=== PATIENT | female | born 1940 | race Caucasian/White ===

== ENCOUNTER 2018-03-15 12:00 | Inpatient (IN) ==
--- NOTE | 2018-03-15 10:04 | Discharge Summary ---
Orders not resulted at time of discharge: Pending orders 03/15/18 09:59 XR knee RT 1-2V [XR] Routine H/H [Hemoglobin and Hematocrit] [HEME] Routine Date of Encounter: 03/19/18 Time of Encounter: 11:53 - Discharge Diagnosis (1) Status post total knee replacement, right Priority: Primary Status: Acute Comments: Opsite dressing, leave intact until first post-operative visit. If dressing becomes >50% saturated, contact office, remove dressing and place appropriate dressing in its place. Do not allow for dressing to get wet. Zipline in place, plan to remove at post-operative day #14-16. Total Joint Precautions x 6 weeks Apply cold therapy wrap 3-6x/day for 20 minutes at a time. Encourage ambulation throughout the day Use Incentive spirometer 10x/hour. Elevate affected extremity above heart as tolerated. Brace: Wear knee immobilizer at night until first post-operative appt. (2) Arthritis of knee, right Priority: Primary Status: Acute (3) Chronic pain Priority: Secondary Status: Chronic Comments: Holding Chronic pain medication x 1-2 weeks. Qualifiers: Chronic pain type: other chronic pain Qualified Code(s): G89.29 - Other chronic pain (4) COPD (chronic obstructive pulmonary disease) Priority: Secondary Status: Chronic Qualifiers: COPD type: unspecified COPD Qualified Code(s): J44.9 - Chronic obstructive pulmonary disease, unspecified (5) Obesity Priority: Secondary Status: Chronic Qualifiers: Obesity type: due to excess calories Obesity classification: adult class 2 (BMI 35 - 39.9) Serious obesity comorbidity presence: without serious comorbidity Body mass index: BMI 35.0-35.9 Qualified Code(s): E66.09 - Other obesity due to excess calories; Z68.35 - Body mass index (BMI) 35.0-35.9, adult (6) RLS (restless legs syndrome) Priority: Secondary Status: Chronic (7) Peripheral neuropathy Priority: Secondary Status: Chronic Qualifiers: Peripheral neuropathy type: polyneuropathy, other Qualified Code(s): G62.89 - Other specified polyneuropathies (8) FAUSTO (obstructive sleep apnea) Priority: Secondary Status: Chronic (9) HTN (hypertension) Priority: Secondary Status: Chronic Qualifiers: Hypertension type: essential hypertension Qualified Code(s): I10 - Essential (primary) hypertension - Hospital Course Hospital course: Ms. Dow is a 77 year old female, Right TKR 03/15/18 Patient seen at bedside, without complaints. A&O x 3 Afebrile, vital signs stable. Vital Signs Temp Pulse Resp BP Pulse Ox 03/19/18 10:56 98.3 F 67 14 144/74 97 03/19/18 08:02 17 97 03/19/18 07:32 98.2 F 61 15 153/76 98 03/19/18 00:03 97.5 F L 62 16 136/74 98 03/18/18 21:57 98 03/18/18 19:23 98.2 F 67 16 152/70 98 03/18/18 15:13 97.8 F 70 18 170/66 97 03/18/18 12:11 16 97 Intake and Output 03/18/18 03/19/18 03/19/18 23:59 07:59 15:59 Intake Total 940 / 940 200 / 200 Balance 940 / 940 200 / 200 Intake: IV Fluids 100 / 100 200 / 200 Ofirmev 1,000 mg/100 ml 1,000 100 / 100 200 / 200 mg In 100 ml @ 400 mls/hr IVPB Q6HR [facility] Rx#:[id number] Oral 840 / 840 Other: Meal Dinner Percent of Meal Consumed 10% Stool Size Small Stool Consistency formed # Voids 1 # Bowel Movements 1 Weight 100.1 kg Patient Weight 03/19/18 23:59 Weight 100.1 kg Labs reviewed. H/H - stable, asymptomatic Short CBC 03/19/18 Range/Units 06:11 WBC 5.8 (4.3-11.1) K/mcL Hgb 10.9 L (11.5-15.4) g/dL Hct 34.2 L (35.3-44.9) % Plt Count 175 (140-400) K/mcL BMP 03/19/18 Range/Units 06:11 Sodium 132 L (136-145) mEq/L Potassium 4.1 (3.5-5.1) mEq/L Chloride 101 (98-107) mEq/L Carbon Dioxide 22 L (23-29) mEq/L BUN 23 (8-23) mg/dL Creatinine 1.02 (0.60-1.20) mg/dL Glucose 92 (70-105) mg/dL Calcium 8.7 (8.6-10.3) mg/dL Pain control: adequate Added Fenatanyl patch 03/18 AM - D/C on Thursday. Added 3 does of Toradol. Improved pain on 03/18. Participating in PT. All questions and concerns addressed. Educated on use of incentive spirometer. Encouraged ambulation and proper hydration. Patient educated on post-operative restrictions and post-operative care. Assessment and plan: Continue with postoperative care Discharge plan: ECF, discharge Thursday - Time Spent with Patient Total time spent providing and/or coordinating discharge services: - Discharge Medications Home Medications: Albuterol Sulfate [Proair Hfa] 2 puff IH Q4H PRN 03/20/16 [History] Atenolol [Tenormin] 75 mg PO DAILY 03/20/16 [History] Baclofen [Lioresal] 5 mg PO BID 03/20/16 [History] Esomeprazole Magnesium [Nexium] 40 mg PO DAILY 03/20/16 [History] Estrogen,Cleopatra/Me-Testosterone [Covaryx Tablet] 1 tab PO DAILY 03/20/16 [History] Modafinil [Provigil] 200 mg PO DAILY 03/20/16 [History] Montelukast [Singulair] 10 mg PO DAILY 03/20/16 [History] Ranitidine HCl [Acid Acting Section Chief] 150 mg PO HS 03/20/16 [History] Tizanidine HCl 4 mg PO TID PRN 03/20/16 [History] Buspirone HCl [Buspar] 10 mg PO BID 08/16/17 [History] Calcium Carbonate [Calcium] 600 mg PO BID 08/16/17 [History] Cholecalciferol (Vitamin D3) [Vitamin D3] 50,000 unit PO MO 08/16/17 [History] Fluticasone Propionate Nasal [Flonase] 2 spr NS DAILY 08/16/17 [History] Furosemide [Lasix] 20 mg PO DAILY 08/16/17 [History] Levothyroxine Sodium [Levo-T] 175 mcg PO DAILY 08/16/17 [History] Pramipexole [Mirapex] 1.5 mg PO HS 08/16/17 [History] Aspirin Enteric Coated [Aspirin EC] 325 mg PO BID #20 tablet. 03/15/18 [Rx] Docusate [Colace] 100 mg PO BID 10 Days #20 capsule 03/15/18 [Rx] OxyCODONE Immed Rel [Roxicodone 5 MG] 5 mg PO Q6HR PRN 7 Days #28 tablet 03/15/18 [Rx] Tiotropium [place] [Spiriva Respimat] 2 puff IH DAILY 03/15/18 [History] Trospium Chloride [Trospium Chloride ER] 60 mg PO DAILY 03/15/18 [History] Atenolol [Tenormin] 50 mg PO DAILY 03/16/18 [History] Ferrous Sulfate 325 mg PO BIDWM tablet 03/19/18 [Rx] Lidocaine Patch [Lidoderm 5% patch] 1 each TP Q24H adh..patch 03/19/18 [Rx] Allergies/Adverse Reactions: Allergy/AdvReac Type Severity Reaction Status Date / Time carbamazepine [From Epitol] Allergy Rash Verified 03/15/18 13:29 duloxetine [From Cymbalta] Allergy Difficulty Verified 03/15/18 13:29 Breathing gabapentin Allergy Blurry Verified 03/15/18 13:29 Vision hydrochlorothiazide AdvReac See Verified 03/15/18 13:29 Comments levofloxacin [From Levaquin] AdvReac Itching Verified 03/15/18 13:29 pregabalin [From Lyrica] AdvReac Irritable Verified 03/15/18 13:29 Date of admission: 03/15/18 Primary care physician: Ger Walsh MD Anticipated date of discharge: 03/19/18 - Patient Status Disposition: Transfer SNF Condition: Good Functional capacity at discharge: uses cane/walker Overall status at discharge: patient is progressing back to baseline - Discharge Instructions Follow Up With: Fredis Montilla MD [Partnered Physician] - 04/14/18 4:30 pm Mary Jane Sommer CNP [Advanced Practice Nurse] - 07/15/18 9:15 am Kayley Motnelongo PAC [Physician Solids Control Technician] - 03/25/18 9:30 am Ger Walsh MD [Primary Care Provider] - 03/24/18 10:30 am
[~2018-03-15 12:00] MED LIST: Total Joint Mixture (50 ml) IR ONE
[2018-03-15] MEDS ORDERED: CeFAZolin Syr 2,000MG/20 ML 2,000 MG/20 ML SYRINGE IVPB ONE (12:24)
[2018-03-15] MEDS ORDERED: Albuterol 2.5 MG/3 ML NEBULIZER IH ONE (12:24)
[2018-03-15] MEDS: Ringers Solution, Lactated 1,000 ML IVC SCH ×2 (12:43→17:01)
--- NOTE | 2018-03-15 13:00 | History & Physical Report ---
Date of Encounter: 03/15/18 Time of Encounter: 13:00 24 Hour HP Update - Instructions Instructions: If the History and Physical is less than 30 days old and was completed prior to A.M. admission and or procedure and has NOT been updated on calendar day of procedure please complete this update prior to performing procedure. - Update Patient reports changes in Medical Condition: No Changes in examination, assessment, or condition: No Changes in Medication: No Preop tests/diagnostics Reviewed: Yes Surgery Remains Indicated: Yes Consent for Planned Operative Procedure(s) Verified: Yes - Pre-Operative Checklist Preoperative Checklist Indicated: No Prophylactic Antibiotic Ordered: Yes Is VTE Prophylaxis Indicated?: Yes
--- NOTE | 2018-03-15 13:16 | Anesthesia Evaluation PreOp ---
Date of Encounter: 03/15/18 Time of Encounter: 13:15 - Past History Planned Operation: Total robotic knee arthroplasty Cardiac History: HTN, Hyperlipidemia Pulmonary History: Former smoker (quit in 1999), COPD (patient denies), FAUSTO Dx (no longer uses cpap) SLOT ATTENDANT History: Other (neuopathy involving bilateral lower extremities) Other Medical History: Renal (stage 2 ckd), Thyroid (hypothyroidism) Anesthesia History: Problems (persistent throat irritation/coughing after only one of her surgeries) Alcohol Use: occasionally Drug use: none Medications and Allergies Albuterol Sulfate [Proair Hfa] 2 puff IH Q4H PRN 03/20/16 [History] Atenolol [Tenormin] 50 mg PO DAILY 03/20/16 [History] Baclofen [Lioresal] 5 mg PO BID 03/20/16 [History] Esomeprazole Magnesium [Nexium] 40 mg PO DAILY 03/20/16 [History] Estrogen,Cleopatra/Me-Testosterone [Covaryx Tablet] 1 tab PO DAILY 03/20/16 [Histor y] Modafinil [Provigil] 200 mg PO DAILY 03/20/16 [History] Montelukast [Singulair] 10 mg PO DAILY 03/20/16 [History] Ranitidine HCl [Acid Autocutter] 150 mg PO HS 03/20/16 [History] Tizanidine HCl 4 mg PO TID PRN 03/20/16 [History] Budesonide/Formoterol 160/4.5 [Symbicort 160/4.5] 2 puff IH BIDR 08/16/17 [History] Buspirone HCl [Buspar] 10 mg PO BID 08/16/17 [History] Calcium Carbonate [Calcium] 600 mg PO BID 08/16/17 [History] Cholecalciferol (Vitamin D3) [Vitamin D] 50,000 unit PO QWEEK 08/16/17 [History] Fluticasone Propionate Nasal [Flonase] 100 mcg NS DAILY 08/16/17 [History] Furosemide [Lasix] 20 mg PO DAILY 08/16/17 [History] Levothyroxine Sodium [Levo-T] 175 mcg PO DAILY 08/16/17 [History] Pramipexole [Mirapex] 1.5 mg PO DAILY 08/16/17 [History] Aspirin Enteric Coated [Aspirin EC] 325 mg PO BID #20 tablet. 03/15/18 [Rx] Docusate [Colace] 100 mg PO BID 10 Days #20 capsule 03/15/18 [Rx] OxyCODONE Immed Rel [Roxicodone 5 MG] 5 mg PO Q6HR PRN 7 Days #28 tablet 03/15/18 [Rx] Allergy/AdvReac Type Severity Reaction Status Date / Time carbamazepine [From Epitol] Allergy Rash Verified 03/15/18 12:29 duloxetine [From Cymbalta] Allergy Difficulty Verified 03/15/18 12:29 Breathing gabapentin Allergy Blurry Verified 08/16/17 14:39 Vision hydrochlorothiazide AdvReac See Verified 03/15/18 12:29 Comments levofloxacin [From Levaquin] AdvReac Itching Verified 03/15/18 12:30 pregabalin [From Lyrica] AdvReac Irritable Verified 08/16/17 14:39 - Meds/Allergy Pre-op Review Medications Reviewed: Yes Allergies Reviewed: Yes Beta Blockers on Current Med List: No Anesthesia Results - Labs Laboratory Tests 03/04/18 03/04/18 03/04/18 09:01 09:01 09:01 WBC 9.4 Hgb 14.1 Hct 43.4 Plt Count 253 PT 10.9 INR 1.0 APTT 27.0 Sodium 135 L Potassium 4.0 Chloride 104 Carbon Dioxide 23 BUN 28 H Creatinine 0.96 Est GFR ( Amer) > 60 Est GFR (Non-Af Amer) 56 L BUN/Creatinine Ratio 29 H Glucose 104 - Imaging EKG: report reviewed, image reviewed (Sinus bradycardia) Anesthesia Exam Last Vital Signs Temp 97.2 F L 03/15/18 12:56 Pulse 69 03/15/18 12:56 Resp 18 03/15/18 12:56 BP 159/73 03/15/18 12:56 Pulse Ox 98 03/15/18 12:56 Weight: 93 kg NPO (# of Hours): > 8 hrs - HEENT Pupil (Motor): Pupils equal, EOMI Mallampati: I Teeth: Poor dentition Oral Opening: Greater than 3 - SLOT ATTENDANT LOC: Oriented SLOT ATTENDANT Sensory: Deficit: RLE, LLE - Cardiac Rhythm: Regular Murmur: None - Pulmonary Breath Sounds: bilateral Clear Respiratory Effort: Symmetrical Anesthesia Assess/Plan ASA Score: 3 Level of consciousness: Cooperative Anesthetic Plan: General, Regional Nerve Block Regional Nerve Block Plan: Femoral, IPACK Reason for No Neuroaxial/Regional Block: Other (hx neuropathy s/p spinal surgery x 2 (lumbar spine surgery with hardware - avoiding neuraxial anesthesia)) Monitoring Plan: Standard Monitors Recovery Plan: PACU
[2018-03-15] MEDS ORDERED: Acetaminophen IV 1,000 MG/100 ML INFUS..BTL IVPB ONE (13:19)
[2018-03-15] MEDS ORDERED: *HR* OxyCODONE Immed Rel 5 MG TABLET PO PRN (13:21)
[2018-03-15] MEDS ORDERED: *HR* Promethazine 25 MG/ML VIAL IVP PRN ×2 (13:21→17:42)
[2018-03-15] MEDS ORDERED: *HR* Propofol 200 MG/20 ML VIAL IVP ONE ×2 (13:33→15:14)
[2018-03-15] MEDS ORDERED: Lidocaine -MPF 2% 2 ML VIAL ONE (13:33)
[2018-03-15] MEDS ORDERED: *HR* Midazolam HCl 2 MG/2 ML VIAL ONE (13:33)
[2018-03-15] MEDS ORDERED: *HR* FentaNYL (PF) 100 MCG/2 ML VIAL ONE ×2 (13:33→15:11)
[2018-03-15] MEDS ORDERED: Ondansetron 4 MG/2 ML VIAL ONE (13:33)
[2018-03-15] MEDS ORDERED: Dexamethasone 4 MG/ML VIAL ONE (13:33)
[2018-03-15] MEDS ORDERED: Bupivacaine/Clonidine Syringe 1 EACH SYRINGE ONE (14:05)
[2018-03-15] MEDS ORDERED: Ethanol\\Acetic Acid\\Na Ace\\Ben 1,000 ML IRRIG.SOLN IR ONE (14:19)
[2018-03-15] MEDS ORDERED: Total Joint Mixture (50 ml) IR ONE (14:30)
[2018-03-15] MEDS ORDERED: Tranexamic Acid 1,000 MG/10 ML VIAL ONE (14:53)
--- NOTE | 2018-03-15 15:59 | Orthopedic Operative Note ---
Date of procedure: 03/15/18 Pre-op diagnosis: Right knee arthritis Post-op diagnosis: same Procedure: Procedure: Right robotic-assisted Total knee replacement Estimated blood loss: 200 cc Hardware: Metal and polyethylene replacement. Panther Burn Femur: 4 Tibia: 4 TS insert: 11 Patella: 36 Exam Under anesthesia: 0 flexion-extension 0 varus valgus as calculated by the robot full flexion and no instability Procedural Notes: Grade 3 arthritic changes all 3 compartments Operative procedure: The patient was brought to the operating room and placed on the operating room table. After general anesthesia was administered the operative knee was examined. Findings were noted in the exam under anesthesia. The operative extremity was prepped and draped in sterile surgical fashion. The patient received IV antibiotics prior to skin incision. A standard midline incision was made centered over the patella. The incision was made through the skin and subcutaneous tissue. A medial parapatellar tendon approach was performed. Care was taken to preserve tissue along the medial aspect of the patella. And to protect the patella tendon. The deep MCL was released off the medial tibia. The infra patella fat pad was excised. The patella was everted and cut was made at the level of the insertion of the quadriceps and patella tendon. The patella was sized the guide was seated and the lug holes are drilled. Knee was brought into flexion. Patient noted to have grade 3 arthritic changes all 3 compartments. Steinmann pins were placed in the tibia and the femur for the tibial and femoral arrays respectively. Checkpoints were also placed in the tibia and the femur for calculation purposes. The knee including the femur and the tibial registered. Osteophytes, ACL and PCL were excised at this point. Extension and flexion were assessed with a valgus stress components were adjusted on the computer to balance the knee. Femoral cuts were made first with robotic assistance, these included the anterior cut posterior cuts chamfer cuts. Tibial cut was then performed with robotic assistance as well. Bone fragments were removed, as well as the medial and lateral meniscus. The size 4 femoral guide was seated box cut was made lug holes are drilled. The size 4 tibial tray was seated and prepared with the fin cutter. Trial reduction with the 11 TS Megan revealed extension of 0 degree and 0 varus valgus full flexion. No varus valgus instability. Trial reduction revealed excellent patella tracking. All trial components were removed all bony surfaces were irrigated. The Tibia was seated followed by the femur, The selected Megan size was seated and secured patella. Patient had similar findings for motion and stability. The knee was closed by the PA. The knee was then irrigated out with 2 L of pulse irrigation. The extensor mechanism was closed with #2 FiberWire suture and #2 PDS suture. The subcutaneous tissue was then irrigated and closed deep with #1 PDS suture superficially with 0 PDS suture and skin was closed with zip tie The patient was then placed in a sterile dressing and a postoperative brace extubated and transferred to recovery room in stable condition. Anesthesia: GETA Surgeon: Fredis Montilla Was there an assistant hvac mechanic present: Yes Senior Network Systems Engineer: Kayley Montelongo Estimated blood loss (cc): 200 Condition: stable Disposition: PACU
[2018-03-15] MEDS ORDERED: *HR* HYDROMORPHONE 2 MG/ML VIAL ONE (16:27)
[2018-03-15 17:16] LABS: Hematocrit 42.2 % (35.3-44.9); Hemoglobin 13.9 g/dL (11.5-15.4)
[2018-03-15] MEDS ORDERED: Ondansetron 4 MG/2 ML VIAL IVP PRN (17:42)
[2018-03-15] MEDS ORDERED: Sennosides 8.6 MG TABLET PO PRN (17:42)
[2018-03-15] MEDS ORDERED: Temazepam 15 MG CAPSULE PO PRN (17:42)
[2018-03-15] MEDS ORDERED: MOM Conc 10 ML UD.LIQ PO PRN (17:42)
[2018-03-15] MEDS ORDERED: Naloxone 0.4 MG/ML INJ IVP PRN (17:42)
--- NOTE | 2018-03-15 17:48 | Anesthesia Evaluation Post Op ---
Date of Encounter: 03/15/18 Time of Encounter: 17:48 - Vital Signs Vital Signs: Vital Signs/O2 Sat, Most Current Temp Pulse Resp BP Pulse Ox 98.9 F 77 18 161/80 100 03/15/18 17:14 03/15/18 17:14 03/15/18 17:14 03/15/18 17:14 03/15/18 17:14 - Lungs Lungs: Clear Ascult./Percussion - Airway Airway: Non-obstructed - Cardiovascular Regular Rate - Mental Status Mental Status: Alert & Oriented, Answers Appropriately - Pain Pain Scale used: Numeric (1 - 10) (tolerable) - Nausea Vomiting Nausea Vomiting: Not Present - Hydration Hydration: Tolerates oral liquids - Discharge PostOp Status: Transfer Patient to floor
[2018-03-15] MEDS: *HR* OxyCODONE Immed Rel 5 MG TABLET PO PRN ×2 (18:13→22:21)
[2018-03-15] MEDS: Ascorbic Acid 500 MG TABLET PO SCH (19:33)
[2018-03-15] MEDS: *HR* Enoxaparin 30 MG/0.3 ML SYRINGE SQ SCH (19:33)
[2018-03-15] MEDS: traMADol 50 MG TABLET PO PRN (20:40)
[2018-03-16] MEDS: Acetaminophen IV 1,000 MG/100 ML INFUS..BTL IVPB SCH ×4 (00:41→21:20)
[2018-03-16] MEDS: *HR* OxyCODONE Immed Rel 5 MG TABLET PO PRN (05:15)
[2018-03-16] MEDS: *HR* Enoxaparin 30 MG/0.3 ML SYRINGE SQ SCH ×2 (06:09→17:05)
[2018-03-16 06:14] LABS: Hemoglobin 12.2 g/dL (11.5-15.4)
--- NOTE | 2018-03-16 06:29 | Orthopedics Progress Note ---
Date of Encounter: 03/16/18 Time of Encounter: 06:29 Subjective Interval history: Patient was seen this morning doing well without complaints. Afebrile vital signs stable. Operative extremity: Neurovascularly intact Dressing clean dry and intact Calves nontender Assessment and plan: Continue with postoperative care Discharged today Objective Vital signs: Vital Signs Temp Pulse Resp BP Pulse Ox 03/16/18 04:34 97.8 F 69 18 128/68 96 03/15/18 23:49 98.0 F 69 16 145/68 95 03/15/18 20:35 97.4 F L 75 16 174/70 95 03/15/18 19:00 75 16 170/77 97 03/15/18 18:30 73 16 185/74 98 03/15/18 18:00 98.4 F 69 15 169/75 98 03/15/18 17:14 98.9 F 77 18 161/80 100 03/15/18 17:04 97.5 F L 75 14 178/80 97 03/15/18 16:54 75 18 166/81 100 03/15/18 16:44 76 20 166/84 100 03/15/18 16:34 98.1 F 77 18 171/65 99 03/15/18 14:50 67 18 141/63 94 03/15/18 14:40 68 18 138/60 98 03/15/18 14:30 70 18 147/76 98 03/15/18 14:20 69 18 144/67 99 03/15/18 14:10 77 18 157/115 100 03/15/18 14:00 68 18 170/70 92 03/15/18 12:56 97.2 F L 69 18 159/73 98 03/15/18 12:14 97.2 F L 69 18 159/73 98 Intake and Output 03/15/18 03/15/18 03/16/18 15:59 23:59 07:59 Intake Total 1500 / 1500 400 / 400 Output Total 200 / 200 0 / 0 Balance 1300 / 1300 400 / 400 Intake: IV Fluids 1000 / 1000 200 / 200 Lactated Ringers 1,000 ML @ 25 1000 / 1000 mls/hr IVC .Q24H COUNT INCLUDES THE [facility] Rx#: [id number] Ofirmev 1,000 mg/100 ml 1,000 100 / 100 mg In 100 ml @ 400 mls/hr IVPB Q6HR [facility] Rx#:[id number] Ancef Syringe 2,000 MG/20 ML 2, 20 / 20 000 mg In 20 ml @ 200 mls/hr IVPB PREOP [facility] Rx#:[id number] Ancef 2,000 MG In 0.9 % Sodium 100 / 100 Chloride 100 ML @ 200 mls/hr IVPB Q8H COUNT INCLUDES THE [facility] Rx#:[id number] Oral 500 / 500 200 / 200 Output: Urine 0 / 0 0 / 0 Estimated Blood Loss 200 / 200 Other: # Voids 1 1 Weight 92.986 kg 99.63 kg Patient Weight 03/16/18 23:59 Weight 99.63 kg - Labs CBC & BMP: 03/16/18 06:03 Consult Discharge Plan - Plan Referrals: Ger Walsh MD [Primary Care Provider] - Prescriptions: Aspirin Enteric Coated [Aspirin EC] 325 mg PO BID #20 tablet. Docusate [Colace] 100 mg PO BID 10 Days #20 capsule OxyCODONE Immed Rel [Roxicodone 5 MG] 5 mg PO Q6HR PRN 7 Days #28 tablet PRN Reason: Severe Pain
[2018-03-16 06:31] LABS: Calcium 8.3 mg/dL (8.6-10.3); Potassium 4.2 mEq/L (3.5-5.1)
[2018-03-16] MEDS: Multivit/Ca/Min/Fe/FA 1 TAB TABLET PO SCH (09:43)
[2018-03-16] MEDS: *HR* OxyCODONE/APAP 5/325 TABLET PO PRN ×2 (09:43→17:09)
[2018-03-16] MEDS: Ascorbic Acid 500 MG TABLET PO SCH ×2 (09:43→17:05)
--- NOTE | 2018-03-16 16:14 | Event Note ---
Date of Encounter: 03/16/18 Time of Encounter: 16:13 PCR - POD#1 - Right TKR 03/15/18 Patient seen at bedside, without complaints. A&O x 3 Afebrile, vital signs stable. Labs reviewed. H/H - stable, asymptomatic Pain control: adequate Participating in PT. All questions and concerns addressed. Educated on use of incentive spirometer. Encouraged ambulation and proper hydration. Patient educated on post-operative restrictions and post-operative care. Assessment and plan: Continue with postoperative care Discharge plan: ECF versus HH, discharge tomorrow or . Short CBC 03/16/18 03/15/18 Range/Units 06:03 17:00 Hgb 12.2 D 13.9 (11.5-15.4) g/dL Hct 37.0 42.2 (35.3-44.9) % BMP 03/16/18 Range/Units 06:03 Sodium 135 L (136-145) mEq/L Potassium 4.2 (3.5-5.1) mEq/L Chloride 107 (98-107) mEq/L Carbon Dioxide 21 L (23-29) mEq/L BUN 25 H (8-23) mg/dL Creatinine 1.08 (0.60-1.20) mg/dL Glucose 142 H (70-105) mg/dL Calcium 8.3 L (8.6-10.3) mg/dL Vital Signs Temp Pulse Resp BP Pulse Ox 03/16/18 14:39 97.5 F L 75 18 149/70 95 03/16/18 10:59 97.6 F 69 18 154/68 96 03/16/18 08:00 95 03/16/18 06:27 97.4 F L 66 18 122/67 95 03/16/18 04:34 97.8 F 69 18 128/68 96 03/15/18 23:49 98.0 F 69 16 145/68 95 03/15/18 20:35 97.4 F L 75 16 174/70 95 03/15/18 19:00 75 16 170/77 97 03/15/18 18:30 73 16 185/74 98 03/15/18 18:00 98.4 F 69 15 169/75 98 03/15/18 17:14 98.9 F 77 18 161/80 100 03/15/18 17:04 97.5 F L 75 14 178/80 97 03/15/18 16:54 75 18 166/81 100 03/15/18 16:44 76 20 166/84 100 03/15/18 16:34 98.1 F 77 18 171/65 99 Intake and Output 03/16/18 03/16/18 03/16/18 07:59 15:59 23:59 Intake Total 500 / 500 860 / 860 Output Total 0 / 0 250 / 250 Balance 500 / 500 610 / 610 Intake: IV Fluids 300 / 300 100 / 100 Ofirmev 1,000 mg/100 ml 1,000 200 / 200 mg In 100 ml @ 400 mls/hr IVPB Q6HR [facility] Rx#:[id number] Ancef 2,000 MG In 0.9 % Sodium 100 / 100 100 / 100 Chloride 100 ML @ 200 mls/hr IVPB Q8H [facility] Rx#:[id number] Oral 200 / 200 760 / 760 Output: Urine 0 / 0 250 / 250 Other: Meal Lunch Percent of Meal Consumed 95% # Voids 1 Weight 99.63 kg Patient Weight 03/16/18 23:59 Weight 99.63 kg
[2018-03-16] MEDS ORDERED: tiZANidine 4 MG TABLET PO PRN (21:06)
[2018-03-16] MEDS ORDERED: Fluticasone Propionate Nasal 50 MCG/SPRAY BOTTLE NS PRN (21:06)
[2018-03-16] MEDS: Ketorolac 15 MG/ML VIAL IVP SCH (21:47)
[2018-03-16] MEDS: Famotidine 20 MG TABLET PO SCH (21:48)
[2018-03-16] MEDS: Baclofen 10 MG TABLET PO SCH (21:48)
[2018-03-17] MEDS: *HR* OxyCODONE Immed Rel 5 MG TABLET PO PRN ×4 (00:05→18:10)
[2018-03-17] MEDS: Acetaminophen IV 1,000 MG/100 ML INFUS..BTL IVPB SCH ×5 (00:41→23:53)
[2018-03-17] MEDS: Ketorolac 15 MG/ML VIAL IVP SCH ×2 (03:39→11:14)
[2018-03-17 06:19] LABS: Hematocrit 33.8 % (35.3-44.9); Hemoglobin 10.7 g/dL (11.5-15.4); Mean Corpuscular HGB Conc 31.7 g/dL (31.6-35.5); Mean Corpuscular Hemoglobin 29.6 pg (28.0-33.3); Mean Corpuscular Volume 93.6 fL (83.0-100.0); Mean Platelet Volume 11.2 fL (9.4-12.4); Platelet Count 153 K/mcL (140-400); Red Blood Count 3.61 M/mcL (3.82-4.97); Red Cell Distribution Width 14.6 % (11.5-14.5)
[2018-03-17] MEDS: traMADol 50 MG TABLET PO PRN ×2 (06:34→22:36)
[2018-03-17] MEDS: *HR* Enoxaparin 30 MG/0.3 ML SYRINGE SQ SCH ×2 (06:35→18:55)
--- NOTE | 2018-03-17 06:44 | Orthopedics Progress Note ---
Date of Encounter: 03/17/18 Time of Encounter: 06:44 Subjective Interval history: Patient was seen this morning planes of pain right knee. Afebrile vital signs stable. Operative extremity: Neurovascularly intact Dressing clean dry and intact Calves nontender Assessment and plan: Continue with postoperative care Hematocrit 33 plan for Discharge today Objective Vital signs: Vital Signs Temp Pulse Resp BP Pulse Ox 03/17/18 03:41 98.1 F 68 18 147/77 97 03/16/18 22:58 97.8 F 66 17 105/63 96 03/16/18 19:10 97.4 F L 76 17 154/80 95 03/16/18 14:39 97.5 F L 75 18 149/70 95 03/16/18 10:59 97.6 F 69 18 154/68 96 03/16/18 08:00 95 Intake and Output 03/16/18 03/16/18 03/17/18 15:59 23:59 07:59 Intake Total 860 / 860 520 / 520 100 / 100 Output Total 250 / 250 200 / 200 Balance 610 / 610 320 / 320 100 / 100 Intake: IV Fluids 100 / 100 100 / 100 100 / 100 Ofirmev 1,000 mg/100 ml 1,000 100 / 100 100 / 100 mg In 100 ml @ 400 mls/hr IVPB Q6HR [facility] Rx#:[id number] Ancef 2,000 MG In 0.9 % Sodium 100 / 100 Chloride 100 ML @ 200 mls/hr IVPB Q8H [facility] Rx#:[id number] Oral 760 / 760 420 / 420 Output: Urine 250 / 250 200 / 200 Other: Meal Lunch Percent of Meal Consumed 95% Weight 99.7 kg Patient Weight 03/17/18 23:59 Weight 99.7 kg - Labs CBC & BMP: 03/17/18 06:01 03/16/18 06:03 Labs: Abnormal lab results RBC 3.61 M/mcL (3.82-4.97) L 03/17/18 06:01 Hgb 10.7 g/dL (11.5-15.4) L D 03/17/18 06:01 Hct 33.8 % (35.3-44.9) L 03/17/18 06:01 RDW 14.6 % (11.5-14.5) H 03/17/18 06:01 Sodium 135 mEq/L (136-145) L 03/16/18 06:03 Carbon Dioxide 21 mEq/L (23-29) L 03/16/18 06:03 BUN 25 mg/dL (8-23) H 03/16/18 06:03 Est GFR (Non-Af Amer) 49 (> 60) L 03/16/18 06:03 Glucose 142 mg/dL (70-105) H 03/16/18 06:03 Calcium 8.3 mg/dL (8.6-10.3) L 03/16/18 06:03 Consult Discharge Plan - Plan Referrals: Fredis Montilla MD [Partnered Physician] - 04/14/18 4:30 pm Mary Jane Sommer CNP [Advanced Practice Nurse] - 07/15/18 9:15 am Kayley Montelongo, PAC [Physician Automotive Warranty Administrator] - 03/25/18 9:30 am Ger Walsh MD [Primary Care Provider] - 03/24/18 10:30 am
[2018-03-17 08:30] LABS: Calcium 8.3 mg/dL (8.6-10.3)
[2018-03-17] MEDS: Ascorbic Acid 500 MG TABLET PO SCH ×2 (08:42→18:18)
[2018-03-17] MEDS: Multivit/Ca/Min/Fe/FA 1 TAB TABLET PO SCH (08:42)
[2018-03-17] MEDS: Furosemide 20 MG TABLET PO SCH (08:42)
[2018-03-17] MEDS: Baclofen 10 MG TABLET PO SCH ×2 (08:42→21:43)
[2018-03-17] MEDS: TESTOSTERONE PO SCH (08:43)
[2018-03-17] MEDS: ESTROGEN ESTER PO SCH (08:43)
[2018-03-17] MEDS: TROSPIUM CHLORIDE 60 MG PO SCH (08:43)
[2018-03-17] MEDS: Tiotropium 18 MCG inhalation IH SCH (11:22)
[2018-03-17] MEDS ORDERED: Ketorolac 15 MG/ML VIAL IVP SCH (12:00)
[2018-03-17] MEDS: CREON PO SCH ×2 (12:48→18:18)
--- NOTE | 2018-03-17 14:33 | Event Note ---
Date of Encounter: 03/17/18 Time of Encounter: 14:31 PCR - POD#2 - Right TKR 03/15/18 Patient seen at bedside, without complaints. A&O x 3 Afebrile, vital signs stable. Labs reviewed. H/H - stable, asymptomatic Pain control: adequate Participating in PT. All questions and concerns addressed. Educated on use of incentive spirometer. Encouraged ambulation and proper hydration. Patient educated on post-operative restrictions and post-operative care. Assessment and plan: Continue with postoperative care Discharge plan: ECF, discharge . Short CBC 03/17/18 Range/Units 06:01 WBC 7.7 (4.3-11.1) K/mcL Hgb 10.7 L D (11.5-15.4) g/dL Hct 33.8 L (35.3-44.9) % Plt Count 153 (140-400) K/mcL BMP 03/17/18 Range/Units 08:00 Sodium 134 L (136-145) mEq/L Potassium 4.0 (3.5-5.1) mEq/L Chloride 106 (98-107) mEq/L Carbon Dioxide 21 L (23-29) mEq/L BUN 28 H (8-23) mg/dL Creatinine 1.15 (0.60-1.20) mg/dL Glucose 113 H (70-105) mg/dL Calcium 8.3 L (8.6-10.3) mg/dL Vital Signs Temp Pulse Resp BP Pulse Ox 03/17/18 07:00 98.4 F 73 16 144/79 98 03/17/18 03:41 98.1 F 68 18 147/77 97 03/16/18 22:58 97.8 F 66 17 105/63 96 03/16/18 19:10 97.4 F L 76 17 154/80 95 03/16/18 14:39 97.5 F L 75 18 149/70 95 Intake and Output 03/16/18 03/17/18 03/17/18 23:59 07:59 15:59 Intake Total 520 / 520 200 / 200 Output Total 200 / 200 Balance 320 / 320 200 / 200 Intake: IV Fluids 100 / 100 200 / 200 Ofirmev 1,000 mg/100 ml 1,000 100 / 100 200 / 200 mg In 100 ml @ 400 mls/hr IVPB Q6HR [facility] Rx#:[id number] Oral 420 / 420 Output: Urine 200 / 200 Other: Weight 99.7 kg Patient Weight 03/17/18 23:59 Weight 99.7 kg
--- NOTE | 2018-03-17 14:36 | Physician Discharge Referral ---
ExtendedCare Referral Info Transfer To: F Provider in Charge after Transfer: PCP Institutional Level of Care: Skilled - Diagnosis (1) Status post total knee replacement, right Priority: Primary Status: Acute (2) Arthritis of knee, right Priority: Primary Status: Acute (3) Chronic pain Priority: Secondary Status: Chronic (4) COPD (chronic obstructive pulmonary disease) Status: Chronic (5) FAUSTO (obstructive sleep apnea) Status: Chronic (6) Obesity Status: Chronic (7) Peripheral neuropathy Status: Chronic (8) RLS (restless legs syndrome) Status: Chronic Expected Duration of Placement: 30 days - Transfer Medications Home Medications: Albuterol Sulfate [Proair Hfa] 2 puff IH Q4H PRN 03/20/16 [History] Atenolol [Tenormin] 75 mg PO DAILY 03/20/16 [History] Baclofen [Lioresal] 5 mg PO BID 03/20/16 [History] Esomeprazole Magnesium [Nexium] 40 mg PO DAILY 03/20/16 [History] Estrogen,Cleopatra/Me-Testosterone [Covaryx Tablet] 1 tab PO DAILY 03/20/16 [History] Modafinil [Provigil] 200 mg PO DAILY 03/20/16 [History] Montelukast [Singulair] 10 mg PO DAILY 03/20/16 [History] Ranitidine HCl [Acid Legal Support Analyst] 150 mg PO HS 03/20/16 [History] Tizanidine HCl 4 mg PO TID PRN 03/20/16 [History] Buspirone HCl [Buspar] 10 mg PO BID 08/16/17 [History] Calcium Carbonate [Calcium] 600 mg PO BID 08/16/17 [History] Cholecalciferol (Vitamin D3) [Vitamin D3] 50,000 unit PO MO 08/16/17 [History] Fluticasone Propionate Nasal [Flonase] 2 spr NS DAILY 08/16/17 [History] Furosemide [Lasix] 20 mg PO DAILY 08/16/17 [History] Levothyroxine Sodium [Levo-T] 175 mcg PO DAILY 08/16/17 [History] Pramipexole [Mirapex] 1.5 mg PO HS 08/16/17 [History] Aspirin Enteric Coated [Aspirin EC] 325 mg PO BID #20 tablet. 03/15/18 [Rx] Docusate [Colace] 100 mg PO BID 10 Days #20 capsule 03/15/18 [Rx] OxyCODONE Immed Rel [Roxicodone 5 MG] 5 mg PO Q6HR PRN 7 Days #28 tablet 03/15/18 [Rx] Tiotropium [place] [Spiriva Respimat] 2 puff IH DAILY 03/15/18 [History] Trospium Chloride [Trospium Chloride ER] 60 mg PO DAILY 03/15/18 [History] Atenolol [Tenormin] 50 mg PO DAILY 03/16/18 [History] Ferrous Sulfate 325 mg PO BIDWM tablet 03/19/18 [Rx] Lidocaine Patch [Lidoderm 5% patch] 1 each TP Q24H adh..patch 03/19/18 [Rx] Allergies/Adverse Reactions: Allergy/AdvReac Type Severity Reaction Status Date / Time carbamazepine [From Epitol] Allergy Rash Verified 03/15/18 13:29 duloxetine [From Cymbalta] Allergy Difficulty Verified 03/15/18 13:29 Breathing gabapentin Allergy Blurry Verified 03/15/18 13:29 Vision hydrochlorothiazide AdvReac See Verified 03/15/18 13:29 Comments levofloxacin [From Levaquin] AdvReac Itching Verified 03/15/18 13:29 pregabalin [From Lyrica] AdvReac Irritable Verified 03/15/18 13:29 - Respiratory Orders None Smoking Cessation: Smoking cessation has been advised. For more information, call the [place] Tobacco Quit Line at 2-179-DNOS-NOW. - Lab Orders Lab Orders: CBC - Advance Directives Code Status: Full Code - Mobility Orders Chair, Ambulate - Rehabiliation Orders Rehab Potential: Good Rehab Orders: ROM Exercises, Evaluation for Physical Therapy, Evaluation for Occupational Therapy Other: Opsite dressing, leave intact until first post-operative visit. If dressing becomes >50% saturated, contact office, remove dressing and place appropriate dressing in its place. Do not allow for dressing to get wet. Zipline in place, plan to remove at post-operative day #14-16. Total Joint Precautions x 6 weeks Apply cold therapy wrap 3-6x/day for 20 minutes at a time. Encourage ambulation throughout the day Use Incentive spirometer 10x/hour. Elevate affected extremity above heart as tolerated. Brace: Wear knee immobilizer at night until first post-operative appt. - Treatments Skin tear care topically daily PRN per policy List/Other: Remove Fentanyl patch on 03/20 - Diet Orders Regular CERTIFICATION: I certify that the transfer of the above named patient to an Extended Care Facility is necessary for the continuing treatment of the diagnosis listed. The above information is true and accurate reflection of patient's current condition. Confidential - Redisclosure prohibited without a patient's written consent.
[2018-03-17] MEDS: tiZANidine 4 MG TABLET PO SCH ×2 (18:56→21:44)
[2018-03-17] MEDS: Famotidine 20 MG TABLET PO SCH (21:44)
[2018-03-17] MEDS: Ringers Solution, Lactated 1,000 ML IVC SCH ×2 (21:53→21:54)
[2018-03-18] MEDS: Ringers Solution, Lactated 1,000 ML IVC SCH ×2 (00:36→21:41)
[2018-03-18] MEDS ORDERED: *HR* FentaNYL PATCH 12 MCG PATCH TD ONE (03:38)
[2018-03-18 03:54] LABS: Hematocrit 35.8 % (35.3-44.9); Hemoglobin 11.4 g/dL (11.5-15.4); Mean Corpuscular HGB Conc 31.8 g/dL (31.6-35.5); Mean Corpuscular Volume 94.2 fL (83.0-100.0); Mean Platelet Volume 11.1 fL (9.4-12.4); Platelet Count 159 K/mcL (140-400); Red Cell Distribution Width 14.4 % (11.5-14.5)
[2018-03-18 04:09] LABS: BUN/Creatinine Ratio 26 (6-26); Blood Urea Nitrogen 25 mg/dL (8-23); Calcium 8.3 mg/dL (8.6-10.3); Carbon Dioxide 17 mEq/L (23-29); Chloride 107 mEq/L (98-107); Glucose 94 mg/dL (70-105); Osmolality,Calculated 282 (280-300); Potassium 4.2 mEq/L (3.5-5.1); Sodium 134 mEq/L (136-145); eGFR For Non-African Americans 56 (> 60)
[2018-03-18] MEDS: *HR* OxyCODONE Immed Rel 5 MG TABLET PO PRN ×2 (04:29)
[2018-03-18] MEDS: Acetaminophen IV 1,000 MG/100 ML INFUS..BTL IVPB SCH ×3 (06:08→18:48)
[2018-03-18] MEDS: *HR* Enoxaparin 30 MG/0.3 ML SYRINGE SQ SCH ×2 (06:08→17:03)
--- NOTE | 2018-03-18 08:11 | Orthopedics Progress Note ---
Date of Encounter: 03/18/18 Time of Encounter: 08:10 Subjective Interval history: Patient was seen this morning still with persistent knee pain patient's discharge was held secondary to intractable pain patient was placed on a fentanyl patch. Afebrile vital signs stable. Operative extremity: Neurovascularly intact Dressing clean dry and intact Calves tender Assessment and plan: Continue with postoperative care We will obtain Doppler exam we will try for discharge today if pain to be managed Objective Vital signs: Vital Signs Temp Pulse Resp BP Pulse Ox 03/18/18 06:30 97.8 F 78 16 149/67 99 03/18/18 06:04 74 158/57 03/18/18 03:35 97.6 F 79 18 174/105 100 03/17/18 23:05 97.9 F 68 17 127/71 99 03/17/18 22:35 144/71 03/17/18 21:55 99 03/17/18 19:14 98.8 F 70 17 163/90 99 03/17/18 18:28 70 161/59 100 03/17/18 18:00 97.9 F 74 181/69 100 03/17/18 15:36 98.1 F 78 16 159/68 97 Intake and Output 03/17/18 03/18/18 03/18/18 23:59 07:59 15:59 Intake Total 650 / 650 400 / 400 Output Total 600 / 600 600 / 600 Balance 50 / 50 -200 / -200 Intake: IV Fluids 100 / 100 100 / 100 Ofirmev 1,000 mg/100 ml 1,000 100 / 100 100 / 100 mg In 100 ml @ 400 mls/hr IVPB Q6HR [facility] Rx#:[id number] Oral 550 / 550 300 / 300 Output: Urine 600 / 600 600 / 600 Other: Weight 99.6 kg Patient Weight 03/18/18 23:59 Weight 99.6 kg - Labs CBC & BMP: 03/18/18 03:15 03/18/18 03:15 Labs: Abnormal lab results RBC 3.80 M/mcL (3.82-4.97) L 03/18/18 03:15 Hgb 11.4 g/dL (11.5-15.4) L 03/18/18 03:15 Sodium 134 mEq/L (136-145) L 03/18/18 03:15 Carbon Dioxide 17 mEq/L (23-29) L 03/18/18 03:15 BUN 25 mg/dL (8-23) H 03/18/18 03:15 Est GFR (Non-Af Amer) 56 (> 60) L 03/18/18 03:15 Calcium 8.3 mg/dL (8.6-10.3) L 03/18/18 03:15 Consult Discharge Plan - Plan Referrals: Fredis Montilla MD [Partnered Physician] - 04/14/18 4:30 pm Mary Jane Sommer CNP [Advanced Practice Nurse] - 07/15/18 9:15 am Kayley Montelongo, PAC [Physician Territory Sales Professional] - 03/25/18 9:30 am Ger Walsh MD [Primary Care Provider] - 03/24/18 10:30 am
[2018-03-18] MEDS: tiZANidine 4 MG TABLET PO SCH ×3 (08:58→21:40)
[2018-03-18] MEDS: Multivit/Ca/Min/Fe/FA 1 TAB TABLET PO SCH (08:58)
[2018-03-18] MEDS: Furosemide 20 MG TABLET PO SCH (08:58)
[2018-03-18] MEDS: Baclofen 10 MG TABLET PO SCH ×2 (08:58→21:39)
[2018-03-18] MEDS: CREON PO SCH ×3 (08:59→17:02)
[2018-03-18] MEDS: *HR* OxyCODONE/APAP 5/325 TABLET PO PRN (08:59)
[2018-03-18] MEDS: Ascorbic Acid 500 MG TABLET PO SCH ×2 (08:59→17:02)
[2018-03-18] MEDS: TROSPIUM CHLORIDE 60 MG PO SCH (11:06)
[2018-03-18] MEDS: TESTOSTERONE PO SCH (11:06)
[2018-03-18] MEDS: ESTROGEN ESTER PO SCH (11:06)
[2018-03-18] MEDS: Tiotropium 18 MCG inhalation IH SCH (12:10)
[2018-03-18] MEDS: Ketorolac 15 MG/ML VIAL IVP SCH (17:03)
[2018-03-18] MEDS: Famotidine 20 MG TABLET PO SCH (21:40)
[2018-03-19] MEDS: Ketorolac 15 MG/ML VIAL IVP SCH ×2 (00:02→07:57)
[2018-03-19] MEDS: Acetaminophen IV 1,000 MG/100 ML INFUS..BTL IVPB SCH ×2 (00:02→05:32)
[2018-03-19] MEDS: Ringers Solution, Lactated 1,000 ML IVC SCH (03:38)
[2018-03-19] MEDS: *HR* Enoxaparin 30 MG/0.3 ML SYRINGE SQ SCH (05:32)
[2018-03-19 06:39] LABS: Hematocrit 34.2 % (35.3-44.9); Hemoglobin 10.9 g/dL (11.5-15.4); Mean Corpuscular HGB Conc 31.9 g/dL (31.6-35.5); Mean Corpuscular Hemoglobin 29.2 pg (28.0-33.3); Mean Corpuscular Volume 91.7 fL (83.0-100.0); Mean Platelet Volume 11.2 fL (9.4-12.4); Platelet Count 175 K/mcL (140-400); Red Blood Count 3.73 M/mcL (3.82-4.97); Red Cell Distribution Width 14.3 % (11.5-14.5)
[2018-03-19 06:56] LABS: BUN/Creatinine Ratio 23 (6-26); Blood Urea Nitrogen 23 mg/dL (8-23); Calcium 8.7 mg/dL (8.6-10.3); Carbon Dioxide 22 mEq/L (23-29); Chloride 101 mEq/L (98-107); Glucose 92 mg/dL (70-105); Osmolality,Calculated 277 (280-300); Potassium 4.1 mEq/L (3.5-5.1); Sodium 132 mEq/L (136-145); eGFR For Non-African Americans 53 (> 60)
[2018-03-19] MEDS: CREON PO SCH ×2 (07:50→11:50)
[2018-03-19] MEDS: Ascorbic Acid 500 MG TABLET PO SCH (07:50)
[2018-03-19] MEDS: Furosemide 20 MG TABLET PO SCH (07:51)
[2018-03-19] MEDS: Baclofen 10 MG TABLET PO SCH (07:51)
[2018-03-19] MEDS: Multivit/Ca/Min/Fe/FA 1 TAB TABLET PO SCH (07:51)
[2018-03-19] MEDS: tiZANidine 4 MG TABLET PO SCH (07:51)
[2018-03-19] MEDS: Tiotropium 18 MCG inhalation IH SCH (08:01)
[2018-03-19] MEDS: TESTOSTERONE PO SCH (09:00)
[2018-03-19] MEDS: ESTROGEN ESTER PO SCH (09:00)
[2018-03-19] MEDS: TROSPIUM CHLORIDE 60 MG PO SCH (09:00)
--- NOTE | 2018-03-19 09:47 | Orthopedics Progress Note ---
Date of Encounter: 03/19/18 Time of Encounter: 09:46 Subjective Interval history: Patient was seen this morning feeling better Afebrile vital signs stable. Operative extremity: Neurovascularly intact Dressing clean dry and intact Calves tender Assessment and plan: Continue with postoperative care Doppler negative hematocrit 34 discharged today Objective Vital signs: Vital Signs Temp Pulse Resp BP Pulse Ox 03/19/18 08:02 17 97 03/19/18 07:32 98.2 F 61 15 153/76 98 03/19/18 00:03 97.5 F L 62 16 136/74 98 03/18/18 21:57 98 03/18/18 19:23 98.2 F 67 16 152/70 98 03/18/18 15:13 97.8 F 70 18 170/66 97 03/18/18 12:11 16 97 03/18/18 11:45 98.4 F 87 16 131/78 98 Intake and Output 03/18/18 03/19/18 03/19/18 23:59 07:59 15:59 Intake Total 940 / 940 200 / 200 Balance 940 / 940 200 / 200 Intake: IV Fluids 100 / 100 200 / 200 Ofirmev 1,000 mg/100 ml 1,000 100 / 100 200 / 200 mg In 100 ml @ 400 mls/hr IVPB Q6HR [facility] Rx#:[id number] Oral 840 / 840 Other: Meal Dinner Percent of Meal Consumed 10% Stool Size Small Stool Consistency formed # Voids 1 # Bowel Movements 1 Weight 100.1 kg Patient Weight 03/19/18 23:59 Weight 100.1 kg - Labs CBC & BMP: 03/19/18 06:11 03/19/18 06:11 Labs: Abnormal lab results RBC 3.73 M/mcL (3.82-4.97) L 03/19/18 06:11 Hgb 10.9 g/dL (11.5-15.4) L 03/19/18 06:11 Hct 34.2 % (35.3-44.9) L 03/19/18 06:11 Sodium 132 mEq/L (136-145) L 03/19/18 06:11 Carbon Dioxide 22 mEq/L (23-29) L 03/19/18 06:11 Est GFR (Non-Af Amer) 53 (> 60) L 03/19/18 06:11 Calculated Osmolality 277 (280-300) L 03/19/18 06:11 Consult Discharge Plan - Plan Referrals: Fredis Montilla MD [Partnered Physician] - 04/14/18 4:30 pm Mary Jane Sommer CNP [Advanced Practice Nurse] - 07/15/18 9:15 am Kayley Montelongo, PAC [Physician Professional Programmer Analyst] - 03/25/18 9:30 am Ger Walsh MD [Primary Care Provider] - 03/24/18 10:30 am
[2018-03-19 10:57] VITALS: BP 144/74
--- NOTE | 2018-03-19 11:51 | Event Note ---
Date of Encounter: 03/18/18 Time of Encounter: 11:50 POD#3 Right TKR 03/15/18 Patient seen at bedside, without complaints. A&O x 3 Afebrile, vital signs stable. Labs reviewed. H/H - stable, asymptomatic Pain control: adequate Added Fenatanyl patch 03/18 AM - D/C on Thursday. Added 3 does of Toradol. Participating in PT. All questions and concerns addressed. Educated on use of incentive spirometer. Encouraged ambulation and proper hydration. Patient educated on post-operative restrictions and post-operative care. Assessment and plan: Continue with postoperative care Discharge plan: ECF, discharge Thursday
== END 2018-03-19 13:40 | DRG 470 ==
LOC: SAMDAY 12:00 → 3NENU 17:40
PROVIDERS: ADMIT Orthopaedic Surgery; ATTEND Orthopaedic Surgery